=== PATIENT | male | born 1975 | race Caucasian/White ===

== ENCOUNTER → 2016-10-08 | Outpatient (CLI) | payer MEDICARE, MEDICAID ==
--- NOTE | 2016-10-08 14:46 | Diagnostic Imaging Report ---
PA and lateral views of the chest. INDICATION: Cough and fever. FINDINGS: There are minimal densities over the lower chest with no convincing infiltrate. These are probably superimposed soft tissues due to the size of the patient. The heart size is borderline. There is no effusion or pneumothorax. The mediastinum and sultana appear unremarkable. IMPRESSION: Minimal increased densities over the lower chest on both sides probably from superimposed soft tissues with no convincing infiltrate. Borderline cardiac size. Dictated by: Dictated on workstation # [id number]
== END ==
LOC: RAD 10:05
PROVIDERS: ATTEND Family Medicine
DX: R05 Cough (principal); R50.9 Fever, unspecified; R06.02 Shortness of breath
CPT/HCPCS: 71020

== ENCOUNTER → 2018-08-31 | Outpatient (CLI) | payer MEDICARE, MEDICAID ==
--- NOTE | 2018-08-31 15:56 | Diagnostic Imaging Report ---
INDICATION: Fall with left shoulder pain. Time of exam 3:09 p.m. FINDINGS: Three views of the left shoulder demonstrate acute fracture involving the proximal humerus. There is a fracture of the humeral neck. There is also involvement of the greater tuberosity. No dislocation is seen. Acromioclavicular alignment is normal. IMPRESSION: Proximal humerus fracture. Dictated by: Dictated on workstation # [id number]
--- NOTE | 2018-08-31 15:57 | Diagnostic Imaging Report ---
INDICATION: Fall with left shoulder pain. TIME OF EXAM: 3:12 PM FINDINGS: Three views left humerus were obtained. Alignment at the elbow is normal. There is a fracture of the proximal humerus, primarily involving the greater tuberosity. There appears to be involvement of the humeral neck as well. Glenohumeral alignment is normal. IMPRESSION: Proximal humerus fracture. Dictated by: Dictated on workstation # [id number]
--- NOTE | 2018-08-31 16:00 | Diagnostic Imaging Report ---
INDICATION: Fall and left clavicle pain. TIME OF EXAM: 03:06 p.m. Two views left clavicle show normal acromioclavicular alignment. The clavicle is intact without evidence of fracture. Fractures of the humeral neck and greater tuberosity are again noted. IMPRESSION: 1. No evidence of clavicle fracture or AC separation. 2. Proximal humerus fracture. Dictated by: Dictated on workstation # [id number]
== END ==
LOC: RAD 14:36
PROVIDERS: ATTEND Family Medicine
DX: S42.252A Displaced fracture of greater tuberosity of left humerus, initial encounter for closed fracture (principal); S42.292A Other displaced fracture of upper end of left humerus, initial encounter for closed fracture; W19.XXXA Unspecified fall, initial encounter
CPT/HCPCS: 73000; 73030; 73060

== ENCOUNTER → 2022-06-30 | Outpatient (CLI) | payer MEDICARE, MEDICAID | LOC: PREOP 05:33 | PROVIDERS: ATTEND Dentist General Practice | DX: Z01.818 Encounter for other preprocedural examination (principal); K02.9 Dental caries, unspecified ==

== ENCOUNTER → 2022-09-08 | Outpatient (CLI) | payer MEDICARE, MEDICAID | END | disposition home or self-care (01) | LOC: PREOP 05:35 | PROVIDERS: ATTEND Dentist General Practice | DX: Z01.818 Encounter for other preprocedural examination (principal) ==

== ENCOUNTER 2022-11-24 05:27 | Outpatient (CLI) | payer MEDICARE, MEDICAID ==
[~2022-11-24] VITALS: Ht 172.7 cm; Wt 104.5 kg
[2022-11-26] MEDS ORDERED: RISP0.5T21 PO (10:02)
[2022-11-26] MEDS ORDERED: CETI10TA49 PO (10:02)
[2022-11-26] MEDS ORDERED: OMEP20TA33 PO (10:02)
[2022-11-26] MEDS ORDERED: MONT-40 PO (10:02)
[2022-11-26] MEDS ORDERED: DIPH25CA79 PO (10:27)
[2022-11-26] MEDS ORDERED: FLUT9.9S NS (10:27)
[2022-11-26] MEDS ORDERED: MAGN400O7 PO (10:27)
[2022-11-26] MEDS ORDERED: HYDR28OI2 TP (10:27)
[2022-11-26] MEDS ORDERED: GUAI237L82 PO (10:27)
[2022-11-26] MEDS ORDERED: ACET325T49 PO (10:27)
[2022-11-26] MEDS ORDERED: MENT5LOZ4 MM (10:27)
[2022-11-26] MEDS ORDERED: LOPE2CAP PO (10:27)
[2022-11-26] MEDS ORDERED: ONDA-106 PO (10:27)
[2022-11-26] MEDS ORDERED: BENZ100C18 PO (10:27)
[2022-11-26] MEDS ORDERED: TETR15DR73 OP (10:27)
[2022-11-26] MEDS ORDERED: PHEN20SP2 MM (10:27)
[2022-11-26] MEDS ORDERED: KETO5DRO70 OP (10:27)
[2022-11-26] MEDS ORDERED: CALC500T7 PO (10:27)
[2022-11-26] MEDS ORDERED: IBUP200C11 PO (10:27)
== END 2022-11-26 10:36 | disposition home or self-care (01) ==
LOC: PREOP 05:27
PROVIDERS: ATTEND Dentist General Practice
DX: Z01.818 Encounter for other preprocedural examination (principal)

== ENCOUNTER 2022-12-01 11:08 | Day surgery (SDC) | payer MEDICARE, MEDICAID ==
[~2022-12-01] VITALS: Ht 172.7 cm; Wt 104.5 kg
[2022-12-01] VITALS (10 sets, daily range): BP systolic 95–149; BP diastolic 71–93
[~2022-12-01 11:08] MED LIST: ACET325T49 PO; BENZ100C18 PO; CALC500T7 PO; CETI10TA49 PO; DIPH25CA79 PO; FLUT9.9S NS; GUAI237L82 PO; HYDR28OI2 TP; IBUP200C11 PO; KETO5DRO70 OP; LOPE2CAP PO; MAGN400O7 PO; MENT5LOZ4 MM; MONT-40 PO; OMEP20TA33 PO; ONDA-106 PO; PHEN20SP2 MM; RISP0.5T21 PO; TETR15DR73 OP
[2022-12-01] MEDS ORDERED: MIDAZOLAM 2 MG/2 ML (VERSED) VIAL ONE (12:10)
[2022-12-01] MEDS: LACTATED RINGERS 1,000 ML IV PRN ×2 (12:22→13:50)
[2022-12-01] MEDS ORDERED: GLYCOPYRROLATE 0.2 MG/ML (ROBINUL) 2 ML VIAL ONE (12:23)
[2022-12-01] MEDS ORDERED: LIDOCAINE PF 2% 5 ML (XYLOCAINE) VIAL ONE (12:23)
[2022-12-01] MEDS ORDERED: fentaNYL INJ 100 MCG/2 ML AMP ONE (12:23)
[2022-12-01] MEDS ORDERED: NEOSTIGMINE (BLOXIVERZ ) 1 MG/1ML 10 ML VIAL ONE (12:23)
[2022-12-01] MEDS ORDERED: ONDANSETRON 4 MG/2 ML (SDV) Z0FRAN ONE (12:23)
[2022-12-01] MEDS ORDERED: proPOfol 200 MG/20 ML (DIPRIVAN) VIAL IV ONE (12:23)
[2022-12-01] MEDS ORDERED: ROCURONIUM 50 MG/5 ML (ZEMURON) VIAL IV ONE (12:23)
[2022-12-01] MEDS ORDERED: ONDANSETRON 4 MG/2 ML (SDV) Z0FRAN IVP PRN (12:45)
[2022-12-01] MEDS ORDERED: fentaNYL INJ 100 MCG/2 ML AMP IVP PRN (12:45)
[2022-12-01] MEDS ORDERED: PHENYLEPHRINE 0.25% NASAL SPR (NEO-SYNEPHRINE) 15 ML NS ONE ×2 (12:46→13:15)
[2022-12-01] MEDS ORDERED: MIDAZOLAM 2 MG/2 ML (VERSED) VIAL IV ONE (13:15)
[2022-12-01] MEDS ORDERED: SEVOFLURANE (ULTANE) 15 ML INHAL SOLN ONE (14:19)
--- NOTE | 2022-12-01 14:38 | Anesthesia-General Post-Op ---
General Patient Condition Mental Status/LOC: Same as Preop Cardiovascular: Satisfactory Nausea/Vomiting: Absent Respiratory: Satisfactory Pain: Controlled Complications: Absent Post Op Complications Complications None Follow Up Care/Instructions Patient Instructions None needed. Anesthesia/Patient Condition Patient Condition Patient is awake in PACU and doing well, no complaints, stable vital signs, no apparent adverse anesthesia problems. No complications reported per nursing. HASEEB WYATT DO December 01, 2022 14:38
--- NOTE | 2022-12-02 13:41 | OPERATIVE REPORT ---
DATE OF SERVICE: 12/01/2022 PREOPERATIVE DIAGNOSIS: Dental caries. POSTOPERATIVE DIAGNOSIS: Dental caries. OPERATION PERFORMED: Total mouth debridement and lrepair of numerous carious teeth utilizing composite resin. DESCRIPTION OF PROCEDURE: The patient was treated on an outpatient basis and following suitable premedication, was taken to the operating room and placed in the supine position upon the table. Anesthesia was induced. Nasotracheal intubation was accomplished and general anesthesia was administered. A throat pack consisting of 1 wet 4 x 4 gauze sponge was placed in the oropharynx and maintained in place throughout the procedure. Mouth opening was maintained at all times with simple digital pressure, mechanical retractors were never utilized. Caries was removed from teeth numbers 2, 3, 12, 13, 14, 4, 5, 18, 19, 20, 29, 30 and 31 and then repaired with composite resin. The patient tolerated this brief procedure quite nicely and following a thorough debridement of the oral cavity with a copious flow of water, adequate suction and compressed air, the throat pack was removed, the patient was extubated and taken to recovery in quite satisfactory condition. Job ID: [id number] DocumentID: [id number] Dictated Date: 12/02/2022 07:38:32 [employer] Supervisor Date: 12/02/2022 13:38:00 Dictated By: KIKI PORTILLO
== END 2022-12-01 16:02 | disposition home or self-care (01) ==
LOC: SDC 11:08
PROVIDERS: ATTEND Dentist General Practice
DX: K02.9 Dental caries, unspecified (principal)
CPT/HCPCS: 87081